=== PATIENT | male | born 1985 | race Two or more races ===

== ENCOUNTER 2017-01-29 20:07 | Emergency (ER) | payer OTHER ==
[~2017-01-29] VITALS: Ht 165.1 cm; Wt 74.8 kg
[2017-01-29 20:13] VITALS: BP 149/83
--- NOTE | 2017-01-29 20:20 | NUR ---
PT PRESENTS TO ER C/O LFA PUNCTURE WOUND FROM A BARBED WIRE FENCE WHILE WORKING TODAY. NAD NOTED. NO OTHER COMPLAINTS. TETANUS UTD. IN ER BED 05.
--- NOTE | 2017-01-29 20:41 | NUR ---
Patient discharged to home in stable condition. Written and verbal after care instructions given. Patient verbalizes understanding of instruction. DRESSING INTACT.
== END 2017-01-29 20:44 | disposition home or self-care (01) ==
LOC: ER 20:11
DX: S51.812A Laceration without foreign body of left forearm, initial encounter (principal); W45.8XXA Other foreign body or object entering through skin, initial encounter; Y93.89 Activity, other specified; Y92.89 Other specified places as the place of occurrence of the external cause; Y99.8 Other external cause status
CPT/HCPCS: A4606; A6402; Z7610